=== PATIENT | male | born 1970 | race Caucasian/White ===

== ENCOUNTER 2017-07-31 22:06 | Emergency (ER) | payer OTHER ==
[~2017-07-31] VITALS: Ht 180.3 cm; Wt 106.6 kg
[~2017-07-31 22:06] MED LIST: CYMBALTA60 MG PO; OMEPRAZOLE20 MG PO
[2017-07-31] MEDS ORDERED: TOPROL XL25 MG PO (22:24)
--- NOTE | 2017-08-02 01:54 | EKG ---
[facility] [address] [facility] [place] [address] Signed Normal sinus rhythm Normal ECG No previous ECGs available Confirmed by KEVIN GARRETT MD ([id number]) on 08/02/2017 1:54:32 AM Electronically Signed By: KEVIN GARRETT MD 08/02/17 0154 PATIENT NAME: MICHAELA LEAL Electrocardiogram DATE OF : 72 PHYSICIAN: KEVIN GARRETT MD REPORT #: [id number] REPORT IS CONFIDENTIAL AND NOT TO BE RELEASED WITHOUT AUTHORIZATION
== END 2017-07-31 23:42 | disposition home or self-care (01) ==
LOC: ED 22:06
DX: R00.2 Palpitations (principal); Z88.5 Allergy status to narcotic agent; Z79.899 Other long term (current) drug therapy
CPT/HCPCS: 71046; 80053; 84484; 85025; 93005; 93010; 99284

== ENCOUNTER 2017-08-09 04:00 | Emergency (ER) | payer OTHER ==
[~2017-08-09] VITALS: Ht 180.3 cm; Wt 106.6 kg
[~2017-08-09 04:00] MED LIST changes: +TOPROL XL25 MG PO
--- NOTE | 2017-08-09 08:50 | EKG ---
[facility] [address] [facility] [place], [place] [address] Signed Sinus bradycardia Otherwise normal ECG When compared with ECG of 31-JUL-2017 22:12, No significant change was found Confirmed by KEVIN GARRETT MD ([id number]) on 08/09/2017 8:50:03 AM Electronically Signed By: KEVIN GARRETT MD 08/09/17 0850 PATIENT NAME: MICHAELA ELAL Electrocardiogram DATE OF : 72 PHYSICIAN: KEVIN GARRETT MD REPORT #: [id number] REPORT IS CONFIDENTIAL AND NOT TO BE RELEASED WITHOUT AUTHORIZATION
== END 2017-08-09 06:45 | disposition home or self-care (01) ==
LOC: ED 04:00
DX: R00.2 Palpitations (principal); Z88.5 Allergy status to narcotic agent; Z88.8 Allergy status to other drugs, medicaments and biological substances; Z79.899 Other long term (current) drug therapy
CPT/HCPCS: 0296T; 0297T; 0298T; 80053; 83735; 84436; 84443; 84479; 84484; 85025; 93005; 93010; 99284

== ENCOUNTER 2017-09-07 10:32 | Emergency (ER) | payer OTHER ==
[~2017-09-07] VITALS: Ht 180.3 cm; Wt 106.6 kg
--- NOTE | 2017-09-07 14:55 | EKG ---
[facility] [address] [facility] [place], [place] [address] Signed Sinus bradycardia Otherwise normal ECG When compared with ECG of 09-AUG-2017 04:30, No significant change was found Confirmed by KEVIN GARRETT MD ([id number]) on 09/07/2017 2:55:48 PM Electronically Signed By: KEVIN GARRETT MD 09/07/17 1455 PATIENT NAME: KOLBY LEAL HANNA Electrocardiogram DATE OF : 72 PHYSICIAN: KEVIN GARRETT MD REPORT #: [id number] REPORT IS CONFIDENTIAL AND NOT TO BE RELEASED WITHOUT AUTHORIZATION
== END 2017-09-07 13:32 | disposition home or self-care (01) ==
LOC: ED 10:32
DX: R07.89 Other chest pain (principal); Z88.8 Allergy status to other drugs, medicaments and biological substances; Z88.5 Allergy status to narcotic agent; Z79.899 Other long term (current) drug therapy
CPT/HCPCS: 71045; 76705; 80053; 84484; 85025; 85610; 93005; 93010; 99285

== ENCOUNTER 2019-11-29 10:10 | Day surgery (SDC) | payer OTHER ==
[~2019-11-29 10:10] MED LIST changes: +B-125000 MC1 SL; +FLUOXETINE HCL40 MG PO; +IBUPROFEN600 MG PO; +OXYCODON-ACETA1 EAC2 PO; +TRAZODONE HCL50 MG PO; +TYLENOL EXTRA500 MG PO; +VITAMIN D325 MC2 PO
--- NOTE | 2019-11-29 14:43 | NUR ---
11/29/19 1443 Alicja Marshall 1437- PT ARRIVES TO PACU AROUSABLE TO VOICE. PT REPORTS NO PAIN OR NAUSEA. RESP EVEN AND UNLABORED. OXYGEN SAT MID 90'S ON RA. 1439- PT PASSING FLATUS.
--- NOTE | 2019-12-02 11:30 | OR ---
[facility] [address] [place], [place] [address] Signed DATE OF OPERATION: 11/29/2019 SURGEON: Jc Hartman MD PREOPERATIVE DIAGNOSES: 1. Gastroesophageal reflux symptoms with episodic dysphagia. 2. Constipation. POSTOPERATIVE DIAGNOSES: 1. Distal esophagitis with superficial nodular changes of distal esophagus, no evidence of Banda's epithelium and poor flap valve. 2. Normal colon to cecum. PROCEDURES: 1. Esophagogastroduodenoscopy with biopsy. 2. Total colonoscopy to cecum. ANESTHESIA: Intravenous sedation, fentanyl 150 mcg and Versed 9 mg total. INDICATIONS: This is a 49-year-old white man is a patient of Alex Bates PA-C. He has episodic reflux-type symptoms including some spontaneous regurgitation and occasional dysphagia. He has no family history of esophageal gastric cancer. He is admitted to undergo upper endoscopy to characterize the problem. He is improved with PPI medication. Additionally, he has complaints of constipation without associated rectal bleeding. He does have family history of polyps in his father. He is admitted to undergo colonoscopy concurrently. The risks of bleeding, infection, and perforation related to upper endoscopy and colonoscopy were reviewed in detail. He understands and wished to proceed. FINDINGS: Upper endoscopy confirmed distal esophagitis with superficial nodular changes of the distal esophageal mucosa, but no evidence of Banda's epithelium or stricture proper. There was a poor flap valve. The stomach and duodenum were normal. CLOtest was negative 30 minutes post procedure. On colonoscopy, the prep was quite excellent. Complete colonoscopy was undertaken to the cecum. There was no sign of polyps, diverticular formation, colitis, or cancer. Electronically Signed By: JC HARTMAN MD 12/02/19 1130 PATIENT NAME: KOLBY LEAL OPERATIVE REPORT DATE OF : 72 REPORT #: [id number] PHYSICIAN: JC HARTMAN MD PCP: ALEX BATES PA-C REPORT IS CONFIDENTIAL AND NOT TO BE RELEASED WITHOUT AUTHORIZATION [facility] [address] [place], [place] [address] Signed DESCRIPTION OF PROCEDURE: The patient was brought to the endoscopy suite given topical lidocaine spray anesthesia and placed in lateral decubitus position. He was given intravenous sedation to the point of slurred speech and nystagmus with full cardiopulmonary monitoring. An Olympus video upper endoscope was passed into the hypopharynx. Vocal cords were visualized as normal. Scope was advanced to the esophagus without problem throughout its length, it was normal except in the distal portion where there were some superficial nodular changes. This did not appear to be worrisome for cancer and there was no evidence of Banda's. The scope was passed into the stomach, which was insufflated with air. Rugal folds appeared normal. The antrum was normal as was the pylorus. The scope was passed through into the duodenum, which was normal. Biopsies were taken of the duodenum, nevertheless. The scope was then withdrawn. Biopsies taken from the antrum and more proximal stomach for both KAPIL and pathologic testing. Retroflexed view showed a rather poor flap valve. This would account for his reflux symptoms. The scope was withdrawn and distal biopsies were taken including those of the superficial nodular changes. The midesophagus was similarly biopsied, though there was no evidence of eosinophilic esophagitis from an endoscopic standpoint. Further withdrawal of scope showed no other abnormality. Plans were then made for colonoscopy. Additional sedation was given. A digital rectal examination performed, which was normal. An Olympus video colonoscope was passed into the rectum and manipulated throughout the colon, ultimately intubating the cecum itself. The ileocecal valve and appendiceal orifice were normal. The scope was withdrawn and examination throughout with all due care showed no sign of polyps, diverticular formation, colitis, or cancer. Retroflex view was essentially normal also. Scope was removed. The patient was taken to the recovery room in good condition. CONCLUDING DIAGNOSES: 1. Gastroesophageal reflux with distal esophageal mucosal changes no evidence of malignancy nor Banda epithelium and associated hiatal hernia is noted. Recommend continued use of PPI for now. 2. Normal colon to cecum. Constipation must be functional. Recommend high-fiber diet. PLAN: He will return to see me in approximately 4-6 weeks and review his pathology reports and his clinical situation at that time. Electronically Signed By: JC HARTMAN MD 12/02/19 1130 PATIENT NAME: KOLBY LEAL OPERATIVE REPORT DATE OF : 72 REPORT #: [id number] PHYSICIAN: JC HARTMAN MD PCP: ALEX BATES PA-C REPORT IS CONFIDENTIAL AND NOT TO BE RELEASED WITHOUT AUTHORIZATION [facility] [address] [place], [place] [address] Signed Jc Hartman MD JM/MODL /[id number] Copies: ~ Electronically Signed By: JC HARTMAN MD 12/02/19 1130 PATIENT NAME: KOLBY LEAL OPERATIVE REPORT DATE OF : 72 REPORT #: [id number] PHYSICIAN: JC HARTMAN MD PCP: ALEX BATES PA-C REPORT IS CONFIDENTIAL AND NOT TO BE RELEASED WITHOUT AUTHORIZATION
--- NOTE | 2019-12-02 17:54 | PATH ---
[facility] [address] [place], [place] [address] Signed SPECIMEN(S): A DUODENUM SPECIMEN(S): B ANTRUM/PYLORUS SPECIMEN(S): C DISTAL ESOPHAGUS SPECIMEN(S): D MID ESOPHAGUS SPECIMEN SOURCE: A. DUODENUM B. ANTRUM/PYLORUS C. DISTAL ESOPHAGUS D. MID ESOPHAGUS CLINICAL HISTORY: GERD with esophagitis, fecal urgency. Post Op: Distal esophagitis, poor flap valve. MICROSCOPIC DESCRIPTION: Histologic sections of all submitted blocks are examined by light microscopy. These findings, together with the gross examination, support the pathologic diagnosis. FINAL PATHOLOGIC DIAGNOSIS: A. Duodenum, biopsy: - No significant histopathology. B. Stomach, antrum/pylorus, biopsy: - No significant histopathologic alterations. C. Distal esophagus, biopsy: - Portions of unremarkable gastric mucosa - Portions of unremarkable squamous mucosa - No evidence of Banda's esophagus D. Mid esophagus, biopsy: - Portions of unremarkable squamous mucosa. COMMENT: The sections from the duodenal biopsy show portions of duodenal mucosa with long finger-like villi. There is no villous atrophy, crypt hyperplasia or intraepithelial lymphocytosis, making a diagnosis of celiac disease unlikely. There is no evidence of peptic duodenitis, microorganisms, abnormal infiltrates or neoplasia. The sections through the gastric biopsies show fragments of histologically unremarkable antral mucosa. There is no evidence of acute or chronic inflammation. There is no evidence of H. pylori, intestinal metaplasia, abnormal infiltrates or neoplasia. PATIENT NAME: KOLBY LEAL HANNA PATHOLOGY DATE OF : 72 REPORT #: [id number] PHYSICIAN: DERRICK YARBROUGH PCP: ALEX COSTA PA-C REPORT IS CONFIDENTIAL AND NOT TO BE RELEASED WITHOUT AUTHORIZATION [facility] [address] [place], [place] [address] Signed The sections show fragments of unremarkable gastric and squamous mucosa. There is no evidence of acute or chronic inflammation. The specialized columnar epithelium of Banda's esophagus is not identified. The biopsy shows normal appearing squamous epithelium. There is no evidence of acute or chronic inflammation. TWK:[id number]:[id number] GROSS DESCRIPTION: Four specimens are received in four containers, labeled "CM." A. The specimen, labeled "CM, 1," and designated on the requisition "duodenum," is received in formalin and consists of two prasad soft tissue fragments that measure 0.3 cm in greatest dimension. The specimen is entirely submitted in cassette (A1). B. The specimen, labeled "CM, 2," and designated on the requisition "antrum/pylorus," is received in formalin and consists of two prasad soft tissue fragments that measure 0.4 cm in greatest dimension. The specimen is entirely submitted in cassette (B1). C. The specimen, labeled "CM, 3," and designated on the requisition "distal esophagus," is received in formalin and consists of four prasad soft tissue fragments that measure 0.4 cm in greatest dimension. The specimen is entirely submitted in cassette (C1). D. The specimen, labeled "CM, 4," and designated on the requisition "mid esophagus," is received in formalin and consists of one prasad soft tissue fragment that measures 0.3 cm in greatest dimension. The specimen is entirely submitted in cassette (D1). AT (under the direct supervision of a pathologist) The Gross Description was prepared using a voice recognition system. The report was reviewed for accuracy; however, sound-alike word errors, addition and/or deletions may occur. If there is any question about this report, please contact Client Services. PERFORMING LABORATORY: The technical component was performed by [facility] [address] (Statistical Machine Servicer: Rossy Zelaya MD; CLIA# [id number]). Professional interpretation was performed by [facility], [address] [place], [place] [address] (CLIA# [id number]). Diagnostician: Taurus Romero MD Pathologist PATIENT NAME: KOLBY LEAL PATHOLOGY DATE OF : 72 REPORT #: [id number] PHYSICIAN: DERRICK YARBROUGH PCP: ALEX COSTA PA-C REPORT IS CONFIDENTIAL AND NOT TO BE RELEASED WITHOUT AUTHORIZATION [facility] [address] [facility] [place], [place] [address] Signed Electronically Signed 12/02/2019 Copies: ~ PATIENT NAME: KOLBY LEAL PATHOLOGY DATE OF : 72 REPORT #: [id number] PHYSICIAN: DERRICK YARBROUGH PCP: ALEX COSTA PA-C REPORT IS CONFIDENTIAL AND NOT TO BE RELEASED WITHOUT AUTHORIZATION
== END 2019-11-29 15:35 | disposition home or self-care (01) ==
LOC: OPS 10:10 → DS 10:10 → OPS 10:30 → DS 10:30 → OPS 15:35
PROVIDERS: ATTEND Surgery
PROC: 0DB28ZX Excision of Middle Esophagus, Via Natural or Artificial Opening Endoscopic, Diagnostic (ICD-10-PCS; 2019-11-29)
PROC: 0DB38ZX Excision of Lower Esophagus, Via Natural or Artificial Opening Endoscopic, Diagnostic (ICD-10-PCS; 2019-11-29)
PROC: 0DJD8ZZ Inspection of Lower Intestinal Tract, Via Natural or Artificial Opening Endoscopic (ICD-10-PCS; 2019-11-29)
PROC: 0DB98ZX Excision of Duodenum, Via Natural or Artificial Opening Endoscopic, Diagnostic (ICD-10-PCS; principal; 2019-11-29 10:30)
PROC: 0DB78ZX Excision of Stomach, Pylorus, Via Natural or Artificial Opening Endoscopic, Diagnostic (ICD-10-PCS; 2019-11-29 10:30)
DX: K59.00 Constipation, unspecified (principal); R13.10 Dysphagia, unspecified; K21.9 Gastro-esophageal reflux disease without esophagitis; G47.30 Sleep apnea, unspecified; E66.9 Obesity, unspecified; Z88.5 Allergy status to narcotic agent; Z79.899 Other long term (current) drug therapy; Z68.33 Body mass index [BMI] 33.0-33.9, adult; Z80.0 Family history of malignant neoplasm of digestive organs
CPT/HCPCS: 99153; G0500; J2250; J3010; J7121

== ENCOUNTER 2020-02-06 15:23 | Emergency (ER) | payer OTHER ==
[~2020-02-06] VITALS: Ht 180.3 cm; Wt 115.7 kg
== END 2020-02-06 18:20 | disposition home or self-care (01) ==
LOC: ED 15:23
DX: S63.601A Unspecified sprain of right thumb, initial encounter (principal); S00.83XA Contusion of other part of head, initial encounter; S00.03XA Contusion of scalp, initial encounter; S10.93XA Contusion of unspecified part of neck, initial encounter; Y04.8XXA Assault by other bodily force, initial encounter; Z88.5 Allergy status to narcotic agent; Z88.8 Allergy status to other drugs, medicaments and biological substances; Z79.899 Other long term (current) drug therapy
CPT/HCPCS: 29125; 70450; 70486; 72125; 73140; 90471; 90715; 99284-25

== ENCOUNTER 2022-11-14 10:27 | Emergency (ER) | payer OTHER ==
[~2022-11-14] VITALS: Ht 180.3 cm; Wt 113.4 kg
--- OUTSIDE RECORDS SUMMARY | 2022-11-14 10:30 | XMS ---
PreManage Notification: KOLBY LEAL Security [employer] Events No recent Security Events currently on file CRITERIA MET - PDMP CARE PROVIDERS GLORIALEWIS [facility] 11/18/2020-Current PHONE: [phone] CHARLENE SILVA [facility] 09/08/2017-Current PHONE: Unknown Gregory has no Care Guidelines for this patient. EKimmie VISIT COUNT (12 MO.) Eder Calloway TOTAL 1 NOTE: Visits indicate total known visits. ED/UCC VISIT TRACKING (12 MO.) 11/14/2022 10:29 EMILY Franks TYPE: Emergency COMPLAINT: - SHAKY, DIZZY, TUNNEL/SPOTTY VISION INPATIENT VISIT TRACKING (12 MO.) 09/26/2022 08:[address] [facility] TYPE: Surgical Services DIAGNOSES: - Intervertebral disc disorders with radiculopathy, lumbar region - Spondylolysis, lumbar region [email or web address]
[2022-11-14] MEDS ORDERED: SERTRALINE HCL25 MG PO (10:47)
[2022-11-14] MEDS ORDERED: GABAPENTIN300 MG PO (10:48)
[2022-11-14 10:55] LABS: BASOPHILS 0.4 % (0-2); EOSINOPHILS 1.6 % (0-6); HEMATOCRIT 42.4 % (35.0-50.0); HEMOGLOBIN 14.5 g/dL (12.0-18.0); LYMPHOCYTES 29.9 % (24-44); MCH 32.3 (27-36); MCHC 34.3 g/dl (30-36); MCV 94.2 fl (81-99); MONOCYTES 7.9 % (0-12); NEUTROPHILS 60.2 % (39-80); PLATELET COUNT 229 K/uL (140-440); RDW 13.1 (10.5-15.0)
[2022-11-14 11:10] LABS: ALBUMIN 4.1 g/dL (3.4-5.0); ALBUMIN/GLOBULIN RATIO 1.11 (1.1-2.4); ANION GAP 13.6 (7-21); BILIRUBIN, TOTAL 2.6 ng/dL (0.2-1.0); BUN/CREATININE RATIO 12.38 (6.0-28.6); CALCIUM 9.2 mg/dL (8.5-10.1); CREATININE, SERUM 1.05 mg/dL (0.70-1.30); POTASSIUM 3.6 mmol/L (3.5-5.1); PROTEIN, TOTAL 7.8 g/dL (6.4-8.2)
[2022-11-14 13:35] VITALS: BP 126/78
== END 2022-11-14 13:35 | disposition home or self-care (01) ==
LOC: ED 10:27
PROVIDERS: Emergency Medicine
DX: R42 Dizziness and giddiness (principal); R00.1 Bradycardia, unspecified; Z88.5 Allergy status to narcotic agent; Z88.8 Allergy status to other drugs, medicaments and biological substances; Z79.899 Other long term (current) drug therapy
CPT/HCPCS: 36415; 70450; 80053; 84484; 85025; 99284-25; A9270

== ENCOUNTER 2024-01-18 13:19 | Emergency (ER) | payer OTHER ==
[~2024-01-18] VITALS: Ht 180.3 cm; Wt 115.0 kg
[~2024-01-18 13:19] MED LIST changes: +GABAPENTIN300 MG PO; +SERTRALINE HCL25 MG PO
[2024-01-18 14:21] LABS: BASOPHILS 0.5 % (0-2); HEMATOCRIT 44.3 % (35.0-50.0); LYMPHOCYTES 22.1 % (24-44); MCH 33.8 (27-36); MCHC 36.2 g/dl (30-36); MCV 93.4 fl (81-99); MONOCYTES 7.4 % (0-12); PLATELET COUNT 214 K/uL (140-440); RBC 4.74 M/ul (4.3-5.7); RDW 12.8 (10.5-15.0)
[2024-01-18 14:35] LABS: ALBUMIN 4.1 g/dL (3.4-5.0); ALBUMIN/GLOBULIN RATIO 1.14 (1.1-2.4); ANION GAP 12.5 (7-21); BILIRUBIN, TOTAL 1.9 ng/dL (0.2-1.0); BUN/CREATININE RATIO 11.45 (6.0-28.6); CALCIUM 9.1 mg/dL (8.5-10.1); CREATININE, SERUM 0.96 mg/dL (0.70-1.30); POTASSIUM 3.5 mmol/L (3.5-5.1); PROTEIN, TOTAL 7.7 g/dL (6.4-8.2)
[2024-01-18 15:36] VITALS: BP 151/75
== END 2024-01-18 15:37 | disposition home or self-care (01) ==
LOC: ED 13:19
PROVIDERS: Emergency Medicine
DX: H53.9 Unspecified visual disturbance (principal); Z88.8 Allergy status to other drugs, medicaments and biological substances; Z88.5 Allergy status to narcotic agent
CPT/HCPCS: 36415; 70450; 70496; 70498; 80053; 85025; 99284-25; Q9967